=== PATIENT | male | born 1960 | race Caucasian/White ===

== ENCOUNTER 2017-05-22 18:41 | Emergency (ER) | payer OTHER ==
[~2017-05-22] VITALS: Ht 170.2 cm; Wt 82.5 kg
--- NOTE | ~2017-05-22 | CR157 ---
[facility] A Service of [facility] & [facility] RADIOLOGY TEXT RESULTS PATIENT: ESTELLA KASPER LOCATION: [facility] : [birth year] UNIT #: [id number] AGE: [address]: Bernie Hart APRN SEX: M ORDER DR: [id number] [facility] [address] [place], [place] [address] [id number] E MR#: [id number] Acc #: [id number] NAME: ESTELLA KASPER. : 1960 SEX: M STUDY DATE/TIME: 05/22/2017 20:25 UNIT: [facility] ROOM: STUDY DESCRIPTION: CR Humerus Min 2 View Rt Attending Physician: Bernie Hart A.P.R.N. Ordering Physician: Bernie Hart A.P.R.N. Primary Care Physician: Manuel Wooten M.D. MEDICAL IMAGING REPORT This report is preliminary unless electronic signature is present EXAM Right humerus series 05/22/2017 HISTORY Trauma. Pain swelling. Lifting heavy object. [place] pop near elbow. FINDINGS AP, internal and external rotation views of the right humerus are presented. No traumatic fracture or malalignment is seen. Study not tailored for assessment of shoulder and elbow joints, but the shoulder and elbow joints appear grossly normal. The visualized bony thorax unremarkable. No acute appearing soft tissue abnormality. Dictated by... Gerardo Carreon M.D. THIS IS AN ELECTRONICALLY VERIFIED REPORT Gerardo Carreon M.D. at 05/23/2017 2:37 PM XIOMARA/ananda TD: 05/23/2017 12:47 JOB #: [id number] MEDICAL IMAGING REPORT Page 1 of 1 COPY
[2017-05-27] MEDS ORDERED: TENORMIN50 MG PO (11:54)
[2017-05-27] MEDS ORDERED: COZAAR100 MG PO (11:55)
[2017-05-27] MEDS ORDERED: OMEPRAZOLE40 M1 PO (11:55)
[2017-05-27] MEDS ORDERED: ULORIC40 MG (11:55)
[2017-05-27] MEDS ORDERED: SIMVASTATIN40 MG PO (11:55)
== END 2017-05-22 21:40 | disposition home or self-care (01) ==
LOC: CFTX 18:41 → CED 18:41 → CFTX 19:54
DX: S46.111A Strain of muscle, fascia and tendon of long head of biceps, right arm, initial encounter (principal); I10 Essential (primary) hypertension; K21.9 Gastro-esophageal reflux disease without esophagitis; X50.1XXA Overexertion from prolonged static or awkward postures, initial encounter; Y92.009 Unspecified place in unspecified non-institutional (private) residence as the place of occurrence of the external cause
CPT/HCPCS: 29240; 73060; 99283

== ENCOUNTER → 2017-05-27 | Outpatient (CLI) | payer OTHER ==
[~2017-05-27] MED LIST: COZAAR100 MG PO; OMEPRAZOLE40 M1 PO; SIMVASTATIN40 MG PO; TENORMIN50 MG PO; ULORIC40 MG
--- NOTE | ~2017-05-27 | MR43 ---
[facility] A Service of [facility] & [facility] RADIOLOGY TEXT RESULTS PATIENT: ESTELLA KASPER [facility] : [birth year] UNIT #: [id number] AGE: [address]: ANTONIO RIVERO APRN SEX: M ORDER DR: [id number] [facility] [address] [place], [place] [address] [id number] O MR#: [id number] Acc #: [id number] NAME: ETSELLA KASPER. : 1960 SEX: M STUDY DATE/TIME: 05/27/2017 9:12 UNIT: [facility] ROOM: STUDY DESCRIPTION: MR Elbow Wo Contrast Rt Attending Physician: Antonio Rivero Aprn Referring Physician: Antonio Rivero Aprn Ordering Physician: Antonio Rivero Aprn Primary Care Physician: Manuel Wooten M.D. MRI CENTER REPORT This report is preliminary unless electronic signature is present. EXAM Right elbow MRI without contrast, 05/27/2017. HISTORY 57-year-old male with right elbow pain and swelling after lifting a lawnmower 05/22/2017. Order requests evaluation for distal biceps tendon rupture. COMPARISON Right humerus x-rays, 05/22/2017. TECHNIQUE Routine, unenhanced, multiplanar, multisequence high-field MR imaging of the right elbow was performed. FINDINGS There is complete rupture of the distal biceps tendon from the radial tuberosity. The tendon is retracted at least 4-5 cm. There is extensive soft tissue edema and hemorrhage tracking cephalad along the musculotendinous junction. Brachialis and triceps tendons are intact. Common flexor and common extensor tendons are intact. Collateral ligaments are intact. No elbow effusion. The ulnar nerve is unremarkable in the region of the cubital tunnel. There is a small focus of subchondral marrow edema along the ulnar aspect of the radial head articular surface suggesting overlying chondromalacia. Remainder of the bone marrow signal is within normal limits. Remaining visualized musculature is unremarkable. IMPRESSION 1. Complete rupture of the distal biceps tendon with approximately 4-5 cm of retraction. 2. Small focus of subchondral marrow edema along the ulnar aspect of the [facility] A Service of [facility] & [facility] RADIOLOGY TEXT RESULTS PATIENT: ESTELLA KASPER LOCATION: [facility] : [birth year] UNIT #: [id number] AGE: [address]: ANTONIO RIVERO APRN SEX: M ORDER DR: radial head articular surface suggesting overlying chondromalacia. Dictated by... Luis Alberto Bach M.D. THIS IS AN ELECTRONICALLY VERIFIED REPORT Luis Alberto Bach M.D. at 05/28/2017 4:21 PM LADI/jim TD: 05/27/2017 14:36 JOB #: [id number] MRI CENTER REPORT Page 1 of 1 COPY
== END | disposition home or self-care (01) ==
LOC: CMRI 08:46
DX: M25.521 Pain in right elbow (principal); M66.88 Spontaneous rupture of other tendons, other sites; R60.0 Localized edema
CPT/HCPCS: 73221

== ENCOUNTER → 2017-05-29 | Day surgery (SDC) | payer OTHER ==
--- NOTE | ~2017-05-29 | OR ---
Unit #: [id number] #: [id number] Patient: ESTELLA KASPER [id number] [address] [place], [place] [address] [id number] O MR#: [id number] NAME: ESTELLA KASPER ROOM: Date of Procedure: 05/29/2017 Admission Date: 05/29/2017 Surgeon: Samuel Das M.D. : 1960 Attending Physician: Samuel Das M.D. Primary Care Physician: Manuel Wooten M.D. OPERATIVE REPORT PREOPERATIVE DIAGNOSIS Right distal biceps tendon rupture. POSTOPERATIVE DIAGNOSIS Right distal biceps tendon rupture. PROCEDURE PERFORMED Right distal biceps tendon repair. IMPLANTS Arthrex size 7 x 10 mm interference screw with biceps button. ACCESS SERVICES LIBRARIAN Haritha García APRN, RNFA. ANESTHESIA General with regional nerve block. ESTIMATED BLOOD LOSS 15 mL. TOURNIQUET TIME 62 minutes. COMPLICATIONS None apparent. INDICATIONS FOR PROCEDURE Mr. Kasper is a 57-year-old gentleman with a clinical exam concerning for right distal biceps tendon rupture. This was confirmed by MRI. He now presents for definitive fixation. We discussed risks, benefits, and alternatives of surgery and he elected to proceed. We have also discussed the possibility and even likelihood of postoperative paresthesias as well as the risk to the posterior interosseous nerve. DESCRIPTION OF PROCEDURE The patient was identified in the preoperative holding area. The operative site was marked. Preoperative antibiotics were administered. A regional block was performed. The patient was brought to the operating room and placed supine on the operating table. A general anesthetic was induced with an LMA. The right arm was then prepped and draped in sterile fashion out on a hand table. A sterile tourniquet was then applied to the Unit #: [id number] #: [id number] Patient: ESTELLA KASPER biceps. The arm was exsanguinated and the tourniquet inflated. An incision was made in a longitudinal fashion over the radial tuberosity. Dissection was carried down through the subcutaneous tissues. We carried our dissection all way down to the recurrent leash of Jadiel. Multiple traversing veins were suture ligated and divided. There was a small seroma at the site of tendinous rupture from the radial tuberosity. The site was identified and easily palpable. The soft tissue was elevated with a small becerra elevator. A Hohmann was placed along the ulnar border of the radius and an [place] laterally to minimize risk to the PIN. Once we had confirmed adequate exposure of the greater tuberosity, attention was turned to the biceps. The biceps tendon was found actually locally in a minimally retracted fashion caught in the lacertus fibrosus. We initially looked for this in the distal humerus soft tissues, but then identified this after releasing the lacertus. The tendon was freely mobile and reached easily to the radial tuberosity. The tendon was trimmed in standard fashion. We then whip-stitched 2 cm of tendon. This suture was then loaded on the biceps button. The radial tuberosity was re-exposed and the guide pin was placed in the radial tuberosity. Positioning was checked on C-arm imaging. A size 8 socket was then reamed. The tendon was docked into the radial tunnel on the biceps button. The tendon was then secured with interference screw. The sutures were passed back through the tendon and then tied further reinforcing the repair. The repair was checked and was found to be stable and secure. The wound was then irrigated. The tourniquet was deflated and hemostasis was achieved. The wound was closed in a layered fashion with 2-0 Vicryl and a running Monocryl in the skin. A well-padded posterior splint was applied. DISPOSITION Stable to the recovery room. Dictated by... Leelee Singh/fritz TD: 05/29/2017 17:31 JOB #: [id number] OPERATIVE REPORT Page 1 of 1 X Samuel Das MD PROCEDURE OPERATIVE NOTE
--- NOTE | ~2017-05-29 | EKG ---
PATIENT: ESTELLA KASPER UNIT #: [id number] Ventricular Rate: 57 BPM Atrial Rate: 57 BPM P-R Interval: 158 ms QRS Duration: 108 ms Q-T Interval: 412 ms QTC Calculation(Bezet): 401 ms P [place]: 20 degrees Calculated R [place]: -26 degrees Calculated T [place]: -6 degrees Diagnosis Line: Sinus bradycardia Diagnosis Line: Normal ECG Diagnosis Line: No previous ECGs available Diagnosis Line: Confirmed by MACEY FLORES MD ([id number]) on 05/30/2017 Diagnosis Line: 8:36:00 AM INTERPRETING MD: MARK GORDILLO
== END | disposition home or self-care (01) ==
LOC: CSUR 11:08
DX: S46.211A Strain of muscle, fascia and tendon of other parts of biceps, right arm, initial encounter (principal); K21.9 Gastro-esophageal reflux disease without esophagitis; I10 Essential (primary) hypertension; J45.909 Unspecified asthma, uncomplicated; E78.5 Hyperlipidemia, unspecified; Z79.899 Other long term (current) drug therapy; Z87.01 Personal history of pneumonia (recurrent); X58.XXXA Exposure to other specified factors, initial encounter
CPT/HCPCS: 93005; C1713; J0690; J0735; J2250; J2795; J3010